=== PATIENT | male | born 1960 | race Caucasian/White ===

== ENCOUNTER 2018-09-15 07:09 | Emergency (ER) | payer OTHER ==
[~2018-09-15] VITALS: Ht 180.3 cm; Wt 79.4 kg
--- NOTE | 2018-09-15 07:39 | Emergency Room Report ---
History of Present Illness General Chief Complaint: Upper Extremity Injury Source: Patient Present Illness HPI Patient jammed his middle finger on the right side in a window 3 days ago. The nail is bruised. He's not sure when his last tetanus shot was. He denies fever or chills. When the hand is down the pain is throbbing. It doesn't radiate. He took an Advil yesterday and that helped. Has not taken any medication today. The pain is rated 3/10. No major medical problems. 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 - [facility] Reviewed Nursing Documentation: PMH: Agreed; PSxH: Agreed Nursing Documentation-PM Past Medical History: No Stated History Review of Systems Constitutional: Reports: see HPI Musculoskeletal: Reports: see HPI Skin: Reports: see HPI Psychiatric: Reports: other - Anxious about caring for this Neurological: Reports: see HPI Physical Exam Vital Signs Date Time Temp Pulse Resp B/P (MAP) Pulse Ox O2 Delivery O2 Flow Rate FiO2 09/15/18 07:16 97.9 63 18 151/93 98 Room Air General Appearance: well appearing, no apparent distress Head: normocephalic, atraumatic ENT: hearing grossly normal, normal voice Neck: full range of motion, supple Respiratory: no respiratory distress, speaking full sentences Cardiovascular #2: 2+ radial (R) - good cap fill Musculoskeletal: gait/station normal, swelling, other Neurologic: alert, motor strength/tone normal, sensory intact Psychiatric: mood/affect normal, anxious Skin: warm/dry, hematoma - Some on will right middle finger Procedures Nail Trepanation Nail Trepanation : Consent: Verbal Nail Trepanation Location: R middle finger Method of Drainage: nail cauterized Sterile Dressing Applied: Yes Patient Tolerated: Well Complications: None Progress prepped betadine, electrocautery. Drainage Medical Decision Making Diagnostic Impression: Primary Impression: Subungual hematoma ER Course Patient presents with subungual hematoma on the right middle finger. We need to exclude fracture. Also the patient is anxious will be given tramadol for analgesia. The nail needs trepanation. Also the patient will be given tetanus. Other X-Ray Diagnostic Results Other X-Ray Diagnostic Results : X-Ray ordered: R hand # of Views/Limited Vs Complete: 3 View Indication: Pain Interpretation: no dislocation, no soft tissue swelling, no fractures Impression: No acute disease Electronically Signed by: Electronically signed by Franky Guillen MD Last Vital Signs Date Time Temp Pulse Resp B/P (MAP) Pulse Ox O2 Delivery O2 Flow Rate FiO2 09/15/18 09:23 97.9 73 18 145/89 98 Room Air Status: improved Disposition: HOME, SELF-CARE Condition: Improved Scripts Bacitracin (Bacitracin) 28.4 Gm Oint...g. 1 APPLIC TOPIC BID, #10 GM Prov: Franky Guillen MD 09/15/18 Franky Guillen MD Sep 15, 2018 07:39
[2018-09-15 07:45] VITALS: BP 151/93
[2018-09-15] MEDS ORDERED: Tetanus/Diptheria/Pertussis Vaccine 0.5ml Syr IM ONE (07:45)
[2018-09-15] MEDS ORDERED: traMADol 50mg tab ORAL ONE (07:45)
--- NOTE | 2018-09-15 08:13 | Diagnostic Imaging Report ---
EXAM: XR Right Hand Complete, 3 or More Views CLINICAL HISTORY: TRAUMA TECHNIQUE: Frontal, lateral and oblique views of the right hand. COMPARISON: No relevant prior studies available. FINDINGS: Bones/joints: Unremarkable. No acute fracture. No dislocation. Soft tissues: Unremarkable. No radiopaque foreign body. IMPRESSION: No radiographic evidence of acute fracture or dislocation.
[2018-09-15] MEDS ORDERED: BACITRACIN15 GM TOPIC (08:26)
[2018-09-15] MEDS ORDERED: Bacitracin Oint UD TOPIC ONE (08:30)
[2018-09-15 09:23] VITALS: BP 145/89
== END 2018-09-15 09:00 | disposition home or self-care (01) ==
LOC: EMR 07:35
DX: S60.131A Contusion of right middle finger with damage to nail, initial encounter (principal); W23.0XXA Caught, crushed, jammed, or pinched between moving objects, initial encounter; Y93.9 Activity, unspecified; Y92.89 Other specified places as the place of occurrence of the external cause; Z23 Encounter for immunization
CPT/HCPCS: 90471; 90715; 99283

== ENCOUNTER 2019-03-04 06:32 | Emergency (ER) | payer MEDICAID, OTHER ==
[~2019-03-04] VITALS: Ht 177.8 cm; Wt 77.1 kg
[~2019-03-04 06:32] MED LIST: BACITRACIN15 GM TOPIC
[2019-03-04] MEDS ORDERED: NKM (06:39)
[2019-03-04 06:49] VITALS: BP 174/96
--- NOTE | 2019-03-04 06:51 | NUR ---
ER Nurse Note: Pt came from home c/o high blood pressure. Pt stated he is under a lot of stress due to his leaving town and stress at work. Pt denies chest pain, dizziness, shortness of breath, trouble sleeping. Pt a&ox4, VSS, BP 160/85 at bedside, no signs of distress. ERMD at pt side; EKG done, will continue to montior.
--- NOTE | 2019-03-04 07:08 | Emergency Room Report ---
History of Present Illness General Chief Complaint: Hypertension Source: Patient Present Illness HPI Patient presents emergency department today complaining of elevated blood pressure. Patient states that he's been under a lot of stress lately. His is out of town and his mother sick with injured wrist. He's been taking care of her. He has had episodes of difficulty sleeping the last week or so. Although he slept better last night. He complains of a mild headache at times. He is not having a headache right now. His blood pressure was 170s today systolic so he became concerned and came here for further evaluation. He denies any chest pain shortness breath. His last stress test about 5-6 years ago. No other complaint or noted. Symptoms noted to be mild.No other modifying factors. No other associated signs and symptoms. No other complaints were noted. Allergies: Coded Allergies: No Known Allergies (Unverified , 09/15/18) Patient History Past Medical History: none Past Surgical History: none Pertinent Family History: none Social History: Denies: smoking, alcohol use, drug use Reviewed Nursing Documentation: PMH: Agreed; PSxH: Agreed Nursing Documentation-PMH Past Medical History: No Stated History Review of Systems All Other Systems: negative except mentioned in HPI Physical Exam Vital Signs Date Time Temp Pulse Resp B/P (MAP) Pulse Ox O2 Delivery O2 Flow Rate FiO2 03/04/19 06:35 99.0 75 18 174/96 96 Sp02 EP Interpretation: reviewed, normal General Appearance: normal inspection, well appearing, no apparent distress, alert Head: atraumatic Eyes: bilateral eye normal inspection ENT: normal ENT inspection, hearing grossly normal, normal voice Neck: normal inspection, full range of motion, supple, no bony tend Respiratory: normal inspection, lungs clear, normal breath sounds, no respiratory distress, no retraction, no wheezing Cardiovascular #1: regular rate, rhythm, no edema Gastrointestinal: normal inspection, normal bowel sounds, non tender, soft, no guarding, no hernia Genitourinary: no CVA tenderness Musculoskeletal: normal inspection, back normal, normal range of motion Neurologic: normal inspection, alert, responsive, speech normal Psychiatric: normal inspection, judgement/insight normal, mood/affect normal Skin: normal inspection, normal color, no rash Medical Decision Making Diagnostic Impression: Primary Impression: Hypertension ER Course Patient presents emergency department today complaining of elevated blood pressure. Differential considerations include hypertensive emergency, hypertensive emergency, stress reaction, acute coronary syndrome just to name a few. Patient's exam is fairly benign. I felt the symptoms could be secondary to stress or benign hypertension. There is no evidence and organ damage. EKG was performed rule out any cardiac involvement. EKG was noted be negative. Patient's recheck blood pressure show systolic of 160s. Patient was comfortable asymptomatic therefore felt the patient could be discharged. Recommend outpatient follow-up with primary care physician. EKG Diagnostic Results Rate: normal Rhythm: NSR ST Segments: no acute changes Rhythm Strip Diag. Results EP Interpretation: yes Rate: 50s Rhythm: NSR, no PVC's, no ectopy Last Vital Signs Date Time Temp Pulse Resp B/P (MAP) Pulse Ox O2 Delivery O2 Flow Rate FiO2 03/04/19 06:49 99.0 75 18 174/96 96 Status: improved Disposition: HOME, SELF-CARE Condition: Stable Departure Forms: Return to Work Return to Work Date: Mar 06, 2019 Patient Instructions: Hypertension, [id number], Managing Your High Blood Pressure Fam Juan MD Mar 04, 2019 07:08
[2019-03-04 07:10] VITALS: BP 160/81
--- NOTE | 2019-03-04 07:10 | NUR ---
ER Nurse Note: Pt seen, treated, medically cleared for discharge by ERMD. Discharge instructions and prescriptions given with repeat verbazliaion by pt. Instructed pt to follow up with primary care provider within one week. Pt a&ox4, VSS, no signs of distress. ID band removed. Pt left with all belongings with steady gait via own transportation.
--- NOTE | 2019-03-04 19:55 | Cardiology Report ---
APPROVED REPORT EKG Measurement Heart [id number] Sinus bradycardia Otherwise normal ECG
== END 2019-03-04 07:10 | disposition home or self-care (01) ==
LOC: EMR 07:00
DX: I10 Essential (primary) hypertension (principal); F43.9 Reaction to severe stress, unspecified
CPT/HCPCS: 93005; 99283